=== PATIENT | female | born 1980 | race Two or more races ===

== ENCOUNTER 2018-09-21 01:03 | Emergency (ER) | payer MEDICAID, OTHER ==
[~2018-09-21] VITALS: Ht 157.5 cm; Wt 73.9 kg
[2018-09-21 01:29] VITALS: BP 118/88
== END 2018-09-21 01:37 | disposition left against medical advice (07) ==
LOC: ER 01:03
DX: R42 Dizziness and giddiness (principal); Z53.21 Procedure and treatment not carried out due to patient leaving prior to being seen by health care provider

== ENCOUNTER 2019-02-24 22:23 | Emergency (ER) | payer SELFPAY ==
[~2019-02-24] VITALS: Ht 157.5 cm; Wt 61.7 kg
[2019-02-24 23:14] VITALS: BP 107/74
[2019-02-24 23:36] LABS: Hematocrit 42.2 % (36.0-46.0); Hemoglobin 14.2 g/dL (12.2-16.2); Mean Corpuscular Hemoglobin 28.7 pg (28.0-32.0); Mean Corpuscular Hgb Conc. 33.6 g/dL (32.0-36.0); Mean Corpuscular Volume 85.5 fL (80.0-100.0); Platelet Count (auto) 261 10^3/uL (140-450); Red Blood Cells 4.93 10^6/uL (4.0-5.20); Red Cell Distribution Width 14.1 % (11.8-14.3); White Blood Cell 7.9 10^3/uL (4.4-10.8)
[2019-02-24 23:40] LABS: Band Neutrophils % (manual) 0; Basophils % (manual) 0 (0.0-2.0); Blast Cells 0; Metamyelocytes % 0; Myelocytes % 0; Promyelocytes % 0; Reactive Lymphocytes 0
[2019-02-24 23:48] LABS: Blood Urea Nitrogen 12 mg/dL (7-18); Calcium 8.2 mg/dL (8.5-10.1); Chloride 108 mmol/L (98-107); Lipase 145 U/L (73-393); Potassium 3.3 mmol/L (3.5-5.1); Sodium 142 mmol/L (136-145)
[2019-02-24 23:51] LABS: Albumin 3.9 g/dL (3.4-5.0); Amylase 220 U/L (25-115); Anion Gap 13 (5-15); BUN/Creatinine Ratio 24.5; Carbon Dioxide 21 mmol/L (21-32); GFR African American 181 mL/min; GFR Non-African American 149 mL/min; Glucose 108 mg/dL (74-106)
[2019-02-24 23:54] LABS: Alanine Aminotransferase 18 U/L (13-56); Alkaline Phosphatase 74 U/L (45-117); Aspartate Aminotransferase 9 U/L (15-37); Bilirubin, Total 0.5 mg/dL (0.2-1.0); Total Protein 7.7 g/dL (6.4-8.2)
[2019-02-25 00:06] LABS: Eosinophils % (manual) 1 (0-7); Lymphocytes % (manual) 7 (10.0-50.0); Monocytes % (manual) 1 (0-12)
== END 2019-02-25 03:25 | disposition left against medical advice (07) ==
LOC: ER 22:27
DX: R11.2 Nausea with vomiting, unspecified (principal); R19.7 Diarrhea, unspecified; M79.10 Myalgia, unspecified site; Z53.21 Procedure and treatment not carried out due to patient leaving prior to being seen by health care provider
CPT/HCPCS: 36415; 74176; 80053; 82150; 83690; 85007; 85027

== ENCOUNTER 2021-11-26 17:33 | Emergency (ER) | payer MEDICAID ==
[~2021-11-26] VITALS: Ht 154.9 cm; Wt 72.6 kg
[2021-11-26 18:09] LABS: Urine WBC None Seen /hpf (0 - 5)
[2021-11-26 18:27] LABS: Urine Bacteria FEW /hpf (None Seen); Urine Blood Negative /uL (Negative); Urine Specific Gravity 1.005 (1.001-1.035)
[2021-11-26 18:56] LABS: Basophils # (auto) 0.1 10 ^3/uL (0-0.2); Basophils % (auto) 0.7 % (0.0-2.0); Eosinophils # (auto) 0.2 10 ^3/uL (0-0.8); Eosinophils % (auto) 1.7 % (0.0-7.0); Hematocrit 39.5 % (36.0-46.0); Hemoglobin 13.5 g/dL (12.2-16.2); Lymphocytes # (auto) 1.4 10 ^3/uL (0.4-5.4); Lymphocytes % (auto) 12.5 % (10.0-50.0); Mean Corpuscular Hemoglobin 27.8 pg (28.0-32.0); Mean Corpuscular Hgb Conc. 34.1 g/dL (32.0-36.0); Mean Corpuscular Volume 81.6 fL (80.0-100.0); Monocytes # (auto) 0.5 10 ^3/uL (0-1.3); Monocytes % (auto) 4.6 % (0.0-12.0); Neutrophils # (auto) 8.9 10 ^3/uL (1.6-8.6); Neutrophils % (auto) 80.5 % (37.0-80.0); Nucleated Red Blood Cells % 0.1 %; Red Blood Cells 4.84 10^6/uL (4.0-5.20); Red Cell Distribution Width 13.8 % (11.8-14.3); White Blood Cell 11.1 10^3/uL (4.4-10.8)
[2021-11-26 19:17] LABS: Albumin 3.8 g/dL (3.4-5.0); BUN/Creatinine Ratio 19.4; Calcium 8.8 mg/dL (8.5-10.1); Potassium 3.5 mmol/L (3.5-5.1)
[2021-11-26 19:20] LABS: Bilirubin, Total 0.2 mg/dL (0.2-1.0); Total Protein 7.9 g/dL (6.4-8.2)
[2021-11-26 20:10] VITALS: BP 140/87
== END 2021-11-26 20:14 | disposition home or self-care (01) ==
LOC: ER 17:33
DX: R07.89 Other chest pain (principal); D72.829 Elevated white blood cell count, unspecified; Z87.891 Personal history of nicotine dependence
CPT/HCPCS: 36415; 71045; 80053; 81001; 84484; 85025; 85379; 93005